=== PATIENT | male | born 1985 | race Caucasian/White ===

== ENCOUNTER 2020-07-20 20:09 | Emergency (ER) | payer OTHER ==
[~2020-07-20] VITALS: Ht 172.7 cm; Wt 83.8 kg
--- NOTE | 2020-07-20 20:11 | PHYS DOC ---
General Adult HPI: HPI: "..I am visiting family here in [place]... and the last two day..s...I ve gotten chest pain and shortness of breath while running..I am having trouble keeping up with my girl friend...".. 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 Patient presents with above hx and complaints chest pain with running. Patient has significant history of pericarditis. Pain started yesterday on the run described as sharp with some increased shortness of breath. Patient ran again today and developed chest pain again with shortness of breath. [facility] Patient has been normally healthy except for the history of a pericarditis ,felt to be due to a mononucleosis infection. Diagnosis was done by mono titers. 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 No specific ill contacts recently. Is up-to-date with vaccinations including completing Pfizter Covid-x2 in May. No history of fever or chills. No other specific symptoms. Review of Systems: Review of Systems: Constitutional: Denies fever or chills Eyes: Denies change in visual acuity HENT: Denies nasal congestion or sore throat Respiratory: Denies cough or shortness of breath Cardiovascular: Complains of exercise-induced chest pain . GI: Denies abdominal pain, nausea, vomiting, bloody stools or diarrhea : Denies dysuria Musculoskeletal: Denies back pain or joint pain Integument: Denies rash Neurologic: Denies headache, focal weakness or sensory changes Endocrine: Denies polyuria or polydipsia Lymphatic: Denies swollen glands Psychiatric: Denies depression or anxiety Family History: Family History: Noncontributory to presentation Current Medications: Current Meds: See nursing for home meds Allergies: Allergies: No known drug allergies Physical Exam: PE: Constitutional: Well developed, well nourished, no acute distress currently, non-toxic appearance. [] HENT: Normocephalic, atraumatic, bilateral external ears normal, oropharynx moist, no oral exudates, nose normal. [] Eyes: PERRLA, EOMI, conjunctiva normal, no discharge. [] Neck: Normal range of motion, no tenderness, supple, no stridor. [] Cardiovascular:Heart rate regular rhythm, no murmur. No rub appreciated. Monitor shows a normal sinus rhythm Lungs & Thorax: Bilateral breath sounds equal apex on auscultation [] Abdomen: Bowel sounds normal, soft, no tenderness, no masses, no pulsatile masses. [] Skin: Warm, dry, no erythema, no rash. [] Back: No tenderness, no CVA tenderness. [] Extremities: No tenderness, no cyanosis, no clubbing, ROM intact, no edema. No cording appreciated Neurologic: Alert and oriented X 3, moves extremities on request, has distal sensory, no focal deficits noted. [] Psychologic: Affect anxious, appears to be well informed, judgement normal, mood normal. [] EKG: EKG: My interpretation EKG #1 shows a sinus rhythm at 76 bpm. Some findings consistent right ventricular hypertrophic changes. But no findings of acute STEMI of contralateral changes My interpretation EKG #2 shows a sinus bradycardia at 58 bpm. No acute interval changes from prior EKG other than rhythm rate [] Radiology/Procedures: Radiology/Procedures: [[address] [address] IMAGING REPORT Signed PATIENT: ANMOL JOHNSTON ACCOUNT: [id number] : 1985 LOCATION: ER AGE: 35 SEX: M EXAM STATUS: REG ER ORD. PHYSICIAN: COCO MARAVILLA MD REASON: cp- Hx myocarditis PROCEDURE: CHEST PA & LATERAL Chest, PA and Lateral: Technique: PA and lateral views of the chest were obtained. History: Chest pain. Comparison: None. Findings: The heart and pulmonary vasculature appear within normal limits. The lungs are clear. The pleural margins are clear. Impression: No acute chest process is seen. Electronically signed by: Toney Jones MD (07/20/2020 9:39 PM) [id number] DICTATED AND SIGNED BY: TONEY JONES MD DATE: 07/20/20 2137 CC: COCO MARAVILLA MD; PCP,UNKNOWN ~MTH0 0 ][address] [address] IMAGING REPORT Signed PATIENT: ANMOL JOHNSTON ACCOUNT: [id number] : 1985 LOCATION: ER AGE: 35 SEX: M EXAM STATUS: REG ER ORD. PHYSICIAN: COCO MARAVILLA MD REASON: Eval PE- cp, OMNI 350, 100ml PROCEDURE: CT ANGIOGRAPHY CHEST PQRS Compliance Statement: One or more of the following individualized dose reduction techniques were ut ilized for this examination: 1. Automated exposure control 2. Adjustment of the mA and/or kV according to patient size 3. Use of iterative reconstruction technique CTA CHEST 07/20/2020 9:56 PM INDICATION: Chest pain COMPARISON: None available TECHNIQUE: Axial CT images of the chest were obtained after the intravenous administration of nonionic contrast. Coronal and sagittal reformats are provided. Maximum intensity projection images of the thoracic vasculature are provided. FINDINGS: The thyroid gland is normal in appearance. There are no pathologically enlarged axillary, mediastinal or hilar lymph nodes. The heart size is within normal limits. No significant pericardial effusion. Thoracic aorta is normal in course and caliber. There is adequate opacification of the pulmonary arterial system. There there are no filling defects within the pulmonary arterial system to suggest acute or chronic pulmonary embolus. 3 mm subpleural solid noncalcified pulmonary nodule in the lateral right lower lobe (series 6, image 110). Calcified granuloma identified in the medial left lung base measuring 7.5 mm (series 6, image 8). There are no pulmonary infiltrates. There are no pleural effusions. No pulmonary vascular congestion or pneumothorax. Visualized portions of the upper abdomen are within normal limits. No suspicious osseous lesions are visualized. IMPRESSION: There is no evidence for acute or chronic pulmonary embolism. 3 mm solid noncalcified pulmonary nodule in the subpleural right lower lobe. Fleischner guidelines for incidentally detected pulmonary nodules suggests no routine follow-up for low risk patients and optional CT at 12 months for high risk patients with solid noncalcified pulmonary nodules less than 6 mm in size. Electronically signed by: Gretta Caraballo MD (07/20/2020 10:21 PM) [facility] DICTATED AND SIGNED BY: GRETTA CARABALLO MD DATE: 07/20/202218 CC: COCO MARAVILLA MD; PCP,UNKNOWN ~MTH0 0 Heart Score: C/O Chest Pain: Yes HEART Score for Chest Pain: HEART Score for Chest Pain Response (Comments) Value History Moderately Suspicious 1 ECG Nonspecific Repolarizatio 1 Age < 45 0 Risk Factors 1 or 2 Risk Factors 1 Troponin < Normal Limit 0 Total 3 Risk Factors: Risk Factors: DM, Current or recent (<one month) smoker, HTN, HLP, family history of CAD, obesity. Risk Scores: Score 0 - 3: 2.5% MACE over next 6 weeks - Discharge Home Score 4 - 6: 20.3% MACE over next 6 weeks - Admit for Clinical Observation Score 7 - 10: 72.7% MACE over next 6 weeks - Early Invasive Strategies Course & Med Decision Making: Course & Med Decision Making Pertinent Labs and Imaging studies reviewed. (See chart for details) Options of treatment discussed with patient and his girlfriend who is also a nurse. The patient currently declines admission. Elects to follow-up when he gets back to [facility] with his primary care and substance abuse rn. Patient return if any concerns. Patient to take a daily aspirin. Recommend patient not to resume his running activity at this time. Recommend he obtain a stress test with echo. Does have some findings on EKG right ventricular hypertrophic changes which may reflect cardiac structure abnormality. Patient did have a slightly elevated D-dimer but with no cording and normal CT (risk lower). Patient currently declines Lovenox or an anticoagulant such as Xarelto or Eliquis. Patient advised return if any concerns or increased symptoms. Do feel that his symptom s are most likely cardiac based. Pt.exhibit UCAR capacity and understand s risks , evaluation,and tx. options. [Impression: 1. Exercise-induced chest pain 2. History of pericarditis-felt to be induced by a mono infection 3. Mild elevation D-dimer 1.04 4. CRP < 0.5 5. Normal Trop x 2 < 0.017 6. Completed COVID vaccination-May. Eloy Disclaimer: Eloy Disclaimer: This electronic medical record was generated, in whole or in part, using a voice recognition dictation system. Departure Departure: Referrals: PCP,UNKNOWN (PCP) COCO MARAVILLA MD Jul 20, 2020 20:11
[2020-07-20] MEDS ORDERED: ASPIRIN CHEWABLE 81 MG TABLET. PO ONE (20:45)
[2020-07-20] MEDS ORDERED: IV RINGERS SOLUTION,LACTATED 1,000 ML IV SCH (20:45)
[2020-07-20 21:06] LABS: BASO # 0.1 x10^3/uL (0.0-0.2); BASO % 1 % (0-3); EOS # 0.1 x10^3/uL (0.0-0.7); EOS % 2 % (0-3); HEMATOCRIT 46.3 % (39.0-53.0); HEMOGLOBIN 16.2 g/dL (13.0-17.5); LYMPH # 2.8 x10^3/uL (1.0-4.8); LYMPH % 39 % (24-48); MEAN CORPUSCULAR HEMOGLOBIN 31 pg (25-35); MEAN CORPUSCULAR HGB CONC 35 g/dL (31-37); MEAN CORPUSCULAR VOLUME 89 fL (79-100); MONO # 0.6 x10^3/uL (0.0-1.1); MONO % 9 % (0-9); NEUT # 3.6 x10^3uL (1.8-7.7); NEUT % 50 % (31-73); PLATELET COUNT 235 x10^3/uL (140-400); RED CELL DISTRIBUTION WIDTH 12.7 % (11.5-14.5); WHITE BLOOD COUNT 7.2 x10^3/uL (4.0-11.0)
[2020-07-20 21:16] LABS: CALCIUM 9.4 mg/dL (8.5-10.1); GFR 85.5; POTASSIUM 3.8 mmol/L (3.5-5.1)
[2020-07-20 21:28] LABS: ALBUMIN 4.3 g/dL (3.4-5.0); DIRECT BILIRUBIN 0.2 mg/dL (0.0-0.2); MAGNESIUM 2.1 mg/dL (1.8-2.4); TOTAL BILIRUBIN 0.6 mg/dL (0.2-1.0); TOTAL PROTEIN 7.8 g/dL (6.4-8.2)
[2020-07-20 21:35] LABS: AMPHETAMINE/METHAMPHETAMINE NEG (NEG); BARBITURATES NEG (NEG); BENZODIAZEPINES NEG (NEG); CANNABINOIDS NEG (NEG); COCAINE NEG (NEG); METHADONE NEG (NEG); OPIATES NEG (NEG); PHENCYCLIDINE NEG (NEG)
--- NOTE | 2020-07-20 21:41 | RAD ---
Chest, PA and Lateral: Technique: PA and lateral views of the chest were obtained. History: Chest pain. Comparison: None. Findings: The heart and pulmonary vasculature appear within normal limits. The lungs are clear. The pleural ma rgins are clear. Impression: No acute chest process is seen. Electronically signed by: Toney Jones MD (07/20/2020 9:39 PM) [id number]
[2020-07-20] MEDS ORDERED: IOHEXOL 350 MG/ML 100 ML VIAL. IV ONE (21:45)
[2020-07-20] MEDS ORDERED: CONTRAST GIVEN. MC PRN (21:45)
[2020-07-20] MEDS ORDERED: KETOROLAC 30 MG/ML VIAL. IVP ONE (21:45)
[2020-07-20 21:48] LABS: BACTERIA,URINE 0 /HPF (0-FEW); BILIRUBIN,URINE NEG (NEG); CLARITY,URINE CLEAR; COLOR,URINE YELLOW; GLUCOSE,URINE NEG (NEG); NITRITE,URINE NEG (NEG); RBC,URINE 0 /HPF (0-2); UROBILINOGEN,URINE 0.2 mg/dL (0.2 mg/dL); WBC,URINE 0 /HPF (0-4)
--- NOTE | 2020-07-20 22:24 | RAD ---
PQRS Compliance Statement: One or more of the following individualized dose reduction techniques were utilized for this examinat ion: 1. Automated exposure control 2. Adjustment of the mA and/or kV according to patient size 3. Use of iterative reconstruction technique CTA CHEST 07/20/2020 9:56 PM INDICATION: Chest pain COMPARISON: None available TECHNIQUE: Axial CT images of the chest were obtained after the intravenous administration of nonioni c contrast. Coronal and sagittal reformats are provided. Maximum intensity projection images of the t horacic vasculature are provided. FINDINGS: The thyroid gland is normal in appearance. There are no pathologically enlarged axillary, mediastinal or hilar lymph nodes. The heart size is within normal limits. No significant pericardial effusion. T horacic aorta is normal in course and caliber. There is adequate opacification of the pulmonary arterial system. There there are no filling defects within the pulmonary arterial system to suggest acute or chronic pulmonary embolus. 3 mm subpleural solid noncalcified pulmonary nodule in the lateral right lower lobe (series 6, image 110). Calcified granuloma identified in the medial left lung base measuring 7.5 mm (series 6, image 8 ). There are no pulmonary infiltrates. There are no pleural effusions. No pulmonary vascular congesti on or pneumothorax. Visualized portions of the upper abdomen are within normal limits. No suspicious osseous lesions are visualized. IMPRESSION: There is no evidence for acute or chronic pulmonary embolism. 3 mm solid noncalcified pulmonary nodule in the subpleural right lower lobe. Fleischner guidelines fo r incidentally detected pulmonary nodules suggests no routine follow-up for low risk patients and opt ional CT at 12 months for high risk patients with solid noncalcified pulmonary nodules less than 6 mm in size. Electronically signed by: Melia Vieira MD (07/20/2020 10:21 PM) [facility]
[2020-07-20 22:28] VITALS: BP 136/85
--- NOTE | 2020-07-21 17:03 | EKG ---
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
--- NOTE | 2020-07-21 17:04 | EKG ---
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
[2020-07-21 18:25] LABS: THYROID STIM HORMONE (TSH) 1.244 uIU/mL (0.358-3.740)
== END 2020-07-21 02:15 | disposition home or self-care (01) ==
LOC: ER 20:09
DX: R07.89 Other chest pain (principal); R79.1 Abnormal coagulation profile; R79.82 Elevated C-reactive protein (CRP)
CPT/HCPCS: 36415; 71046; 71275; 80048; 80061; 80076; 80307; 81001; 82550; 83690; 83735; 83880; 84443; 84484; 85025; 85379; 85610; 85730; 86140; 93005; 96361; 96374; 99285; J1885; J7120; Q9967